=== PATIENT | female | born 1950 | race Caucasian/White ===

== ENCOUNTER → 2016-10-22 | Outpatient (CLI) | payer MEDICARE ==
[~2016-10-22] MED LIST: AMOXICILLIN875 MG; ASPIRIN 81M81 MG/TA2 PO; BACTRIM DS 8001 TAB PO; CARAFATE 1GM1 G PO; DIAZEPAM PO; HEPARIN 50500 U/5 ML IV; HYDROCODONE/APAP; INVANZ INJ1 G/VIAL IV; LEXAPRO 10MG10 MG PO; LORTAB 5/500 501 TAB PO; LORTAB 7.5/5001 TAB PO; NORVASC2.5 MG PO; NS INT FLUSH 1010 ML IV; PERCOCET 325 MG1 TA2 PO; PERCOCET 325 MG1 TAB PO; PRILOSEC 20MG20 MG PO; SYNTHROID0.05 MG/TA PO; [UNRECOGNIZED DRUG - REMARK] TP
== END ==
LOC: MC.RAD 10:00
DX: N63 Unspecified lump in breast (principal)

== ENCOUNTER → 2017-10-20 | Outpatient (CLI) | payer MEDICARE | LOC: COL.VAS 10:44 | DX: I74.3 Embolism and thrombosis of arteries of the lower extremities (principal) ==

== ENCOUNTER → 2017-10-22 | Outpatient (CLI) | payer MEDICARE | LOC: COL.RAD 13:17 | DX: I74.5 Embolism and thrombosis of iliac artery (principal); I70.201 Unspecified atherosclerosis of native arteries of extremities, right leg; I71.4 Abdominal aortic aneurysm, without rupture; I74.19 Embolism and thrombosis of other parts of aorta; Z89.421 Acquired absence of other right toe(s); J43.9 Emphysema, unspecified; Z87.39 Personal history of other diseases of the musculoskeletal system and connective tissue | CPT/HCPCS: J2704; J3010; Q9967 ==

== ENCOUNTER 2017-10-23 05:50 | Day surgery (SDC) | payer MEDICARE ==
[2017-10-23] VITALS (16 sets, daily range): BP systolic 102–156; BP diastolic 54–96; PULSE 55–87; TEMP 98.5
[~2017-10-23] VITALS: Ht 155 cm; Wt 59.0 kg
[2017-10-23 08:14] LABS: HEMOGLOBIN 13.6 g/dl (12.5-16.0); MEAN CELL VOLUME 95 fl (80.0-100.0); MEAN CORPUSCULAR HEMOGLOBIN 31 pg (27.0-31.0); MEAN CORPUSCULAR HGB CONC 33 g/dl (33.0-37.0); MEAN PLATELET VOLUME 9.6 fl (7.4-10.4); PLATELET COUNT 307 K/mm3 (130-400); RED BLOOD COUNT 4.34 M/mm3 (4.10-5.30); REDCELL DISTRIBUTION WIDTH-CV 13.3 % (11.5-14.5)
[2017-10-23 08:16] LABS: CREATININE, serum 0.86 mg/dL (0.52-1.25); PROTHROMBIN TIME 11.1 SECONDS (9.7-12.8)
[2017-10-23 15:48] LABS: HEMATOCRIT 38.3 % (37.0-47.0); HEMOGLOBIN 12.5 g/dl (12.5-16.0); MEAN CELL VOLUME 97 fl (80.0-100.0); MEAN CORPUSCULAR HEMOGLOBIN 32 pg (27.0-31.0); MEAN CORPUSCULAR HGB CONC 33 g/dl (33.0-37.0); MEAN PLATELET VOLUME 9.3 fl (7.4-10.4); PLATELET COUNT 247 K/mm3 (130-400); RED BLOOD COUNT 3.97 M/mm3 (4.10-5.30); REDCELL DISTRIBUTION WIDTH-CV 13.4 % (11.5-14.5)
[2017-10-23 15:59] LABS: PROTHROMBIN TIME 11.6 SECONDS (9.7-12.8)
== END 2017-10-23 17:16 | disposition home or self-care (01) ==
LOC: COL.CAR 05:50
PROVIDERS: Family Medicine; Radiology Diagnostic Radiology
DX: I70.223 Atherosclerosis of native arteries of extremities with rest pain, bilateral legs (principal); F17.210 Nicotine dependence, cigarettes, uncomplicated; J30.9 Allergic rhinitis, unspecified; E03.9 Hypothyroidism, unspecified; I10 Essential (primary) hypertension; K21.9 Gastro-esophageal reflux disease without esophagitis; D64.9 Anemia, unspecified
CPT/HCPCS: J1644; J3010; J7030; J7120; Q9967

== ENCOUNTER 2018-12-09 10:01 | Emergency (ER) | payer MEDICARE ==
[~2018-12-09] VITALS: Ht 154.9 cm; Wt 54.5 kg
[2018-12-09 10:10] VITALS: TEMP 97.9
[2018-12-09] MEDS ORDERED: ALEVE 220MG220 MG PO (10:26)
[2018-12-09 10:51] LABS: BASO % 0.2 % (0.0-2.0); GRAN # 10.9 (1.4-6.5); GRAN % 81.6 % (42.2-75.2); HEMATOCRIT 41.1 % (37.0-47.0); HEMOGLOBIN 13.3 g/dl (12.5-16.0); LYMPH # 1.7 (1.2-3.4); LYMPH % 12.4 % (20.0-51.0); MEAN CELL VOLUME 93 fl (80.0-100.0); MEAN CORPUSCULAR HEMOGLOBIN 30 pg (27.0-31.0); MEAN CORPUSCULAR HGB CONC 32 g/dl (33.0-37.0); MEAN PLATELET VOLUME 9.2 fl (7.4-10.4); MONO # 0.8 (0.1-0.6); MONO % 5.6 % (1.7-9.3); PLATELET COUNT 317 K/mm3 (130-400); RED BLOOD COUNT 4.43 M/mm3 (4.10-5.30); REDCELL DISTRIBUTION WIDTH-CV 14.7 % (11.5-14.5)
[2018-12-09 10:59] LABS: PROTHROMBIN TIME 11.3 SECONDS (9.7-12.8)
[2018-12-09 11:02] LABS: PARTIAL THROMBOPLASTIN TIME 38.2 SECONDS (26.0-37.0)
[2018-12-09 11:03] LABS: ALBUMIN 3.6 gm/dL (3.5-5.0); CALCIUM 9.1 mg/dL (8.4-10.2); CREATININE, serum 1.21 (0.52-1.25); POTASSIUM 4.3 mmol/L (3.4-5.0); TOTAL PROTEIN 6.6 gm/dL (6.4-8.2)
[2018-12-09] MEDS ORDERED: PERCOCET 325 MG1 TA2 PO (14:18)
[2018-12-09 14:25] VITALS: BP 155/74; PULSE 57
== END 2018-12-09 14:26 | disposition home or self-care (01) ==
LOC: COL.ER 10:01
PROVIDERS: Physician Assistant
DX: I77.1 Stricture of artery (principal); M79.671 Pain in right foot; F17.210 Nicotine dependence, cigarettes, uncomplicated; I73.9 Peripheral vascular disease, unspecified